=== PATIENT | male | born 1970 | race American Indian/Alaskan Native ===

== ENCOUNTER 2018-11-28 15:26 | Emergency (ER) | payer OTHER ==
--- NOTE | 2018-11-28 15:41 | Emergency Department Report ---
Blank Doc - Documentation Documentation: 48-year-old male that presents with left sided chest pain with radiation to left arm. Denies any SOB This initial assessment/diagnostic orders/clinical plan/treatment(s) is/are subject to change based on patient's health status, clinical progression and re- assessment by fellow clinical providers in the ED. Further treatment and workup at subsequent clinical providers discretion. Patient/guardians urged not to elope from the ED as their condition may be serious if not clinically assessed and managed. Initial orders include: 1- Patient sent to MAIN ED for further evaluation and treatment 2- labs 3- EKG 4- CXR
[2018-11-28 15:57] LABS: Basophils % (Auto) 0.6 % (0.0-1.8); Eosinophils # (Auto) 0.2 K/mm3 (0.0-0.4); Eosinophils % (Auto) 2.7 % (0.0-4.3); Hematocrit 39.5 % (35.5-45.6); Hemoglobin 12.6 gm/dl (11.8-15.2); Lymphocytes # (Auto) 1.8 K/mm3 (1.2-5.4); Lymphocytes % (Auto) 31.6 % (13.4-35.0); Mean Corpuscular HGB Conc 32 % (32-34); Mean Corpuscular Volume 83 fl (84-94); Monocytes # (Auto) 0.6 K/mm3 (0.0-0.8); Monocytes % (Auto) 10.5 % (0.0-7.3); Platelet Count 280 K/mm3 (140-440); Red Blood Count 4.74 M/mm3 (3.65-5.03); Red Cell Distribution Width 15.5 % (13.2-15.2)
[2018-11-28 16:06] LABS: INR 1.06 (0.87-1.13)
[2018-11-28 16:07] LABS: Partial Thromboplastin Time 29.9 Sec. (24.2-36.6)
--- NOTE | 2018-11-28 16:11 | XRay Report ---
CHEST 2 VIEWS INDICATION: Chest Pain. COMPARISON: None FINDINGS: Support devices: None. Heart: Within normal limits. Lungs/pleura: No acute air space or interstitial disease. No pneumothorax. Additional findings: None. IMPRESSION: No acute findings. Signer Name: Sammy Chan Jr, MD Signed: 11/28/2018 4:06 PM Workstation Name: [id number]
[2018-11-28 16:21] LABS: BUN/Creatinine Ratio 12; Blood Urea Nitrogen 13 mg/dL (9-20); Calcium 9.1 mg/dL (8.4-10.2); Hemolysis Index 16
[2018-11-28 19:01] VITALS: BP 147/84
--- NOTE | 2018-11-28 20:05 | Emergency Department Report ---
ED Chest Pain HPI - General Chief Complaint: Chest Pain Stated Complaint: CHEST PAIN/RT SIDE TINGLE Time Seen by Provider: 11/28/18 15:39 Source: patient Mode of arrival: Ambulatory Limitations: No Limitations - History of Present Illness Initial Comments: Mr. Romo is a pleasant healthy 48-year-old male with history of asthma who presents with chest pain in the morningsfor the past several days. He also said diffuse tingling in his body mostly in his hands. He attributes some of his symptoms to poor diet and long hours at work. Over the last several months he has been working double shifts in order to save up more money for pills. He is currently symptom-free. Symptoms are intermittent but worse in the morning. Symptoms are not associated with exertion. Last year he had cardiac stress tests which was normal according to his report. He is followed by Dr. Shelton of [facility]. MD Complaint: chest pain -: Gradual, week(s) (1) Onset: during rest Pain Location: substernal Severity: mild Severity scale (0 -10): 5 Quality: dull Consistency: now resolved Improves With: nothing Worsens With: nothing re: other (tingling in his hands) - Related Data Home Medications Medication Instructions Recorded Confirmed Last Taken Aspirin EC [Aspirin Enteric Coated 81 mg PO QDAY 07/25/15 07/25/15 2 Weeks Ago TAB] ~07/11/15 Ibuprofen [Motrin] 200 mg PO Q6H PRN 07/25/15 07/25/15 3 Weeks Ago ~07/04/15 Nitroglycerin [Nitrostat] 0.4 mg SL Q5M PRN 07/25/15 07/25/15 Unknown Valacyclovir HCl [valACYclovir] 1,000 mg PO PRN 07/25/15 07/25/15 2 Weeks Ago ~07/11/15 Allergies Allergy/AdvReac Type Severity Reaction Status Date / Time No Known Allergies Allergy Verified 07/25/15 07:04 Heart Score - HEART Score History: Slightly suspicious EKG: Normal Age: 45-65 Risk factors: 1-2 risk factors Troponin: < normal limit HEART Score: 2 ED Review of Systems ROS: Stated complaint: CHEST PAIN/RT SIDE TINGLE Other details as noted in HPI Comment: All other systems reviewed and negative Constitutional: denies: fever, malaise Cardiovascular: denies: chest pain Neurological: paresthesias ED Past Medical Hx - Past Medical History Previous Medical History?: No Hx Hypertension: No Hx Heart Attack/AMI: No Hx Diabetes: No Hx Renal Disease: No Hx Asthma: Yes Hx COPD: No - Surgical History Hx Coronary Stent: No Hx Pacemaker: No - Family History Family history: hypertension, vascular disease, other (mother has history of CVA) - Social History Smoking Status: Unknown if ever smoked Substance Use Type: None - Medications Home Medications: Home Medications Medication Instructions Recorded Confirmed Last Taken Type Aspirin EC [Aspirin Enteric Coated 81 mg PO QDAY 07/25/15 07/25/15 2 Weeks Ago History TAB] ~07/11/15 Ibuprofen [Motrin] 200 mg PO Q6H PRN 07/25/15 07/25/15 3 Weeks Ago History ~07/04/15 Nitroglycerin [Nitrostat] 0.4 mg SL Q5M PRN 07/25/15 07/25/15 Unknown History Valacyclovir HCl [valACYclovir] 1,000 mg PO PRN 07/25/15 07/25/15 2 Weeks Ago History ~07/11/15 ED Physical Exam - General Limitations: No Limitations General appearance: alert, in no apparent distress - Head Head exam: Present: atraumatic, normocephalic - Eye Eye exam: Present: normal appearance - ENT ENT exam: Present: mucous membranes moist - Neck Neck exam: Present: normal inspection, full ROM - Respiratory Respiratory exam: Present: normal lung sounds bilaterally. Absent: respiratory distress, wheezes, rales, rhonchi - Cardiovascular Cardiovascular Exam: Present: regular rate, normal rhythm, normal heart sounds. Absent: systolic murmur, diastolic murmur, rubs, gallop - GI/Abdominal GI/Abdominal exam: Present: soft, normal bowel sounds. Absent: distended, tenderness, guarding, rebound - Rectal Rectal exam: Present: deferred - Extremities Exam Extremities exam: Present: normal inspection - Back Exam Back exam: Present: normal inspection - Neurological Exam Neurological exam: Present: alert, oriented X3 - Psychiatric Psychiatric exam: Present: normal affect, normal mood - Skin Skin exam: Present: warm, dry, intact, normal color. Absent: rash ED Course Vital Signs 11/28/18 11/28/18 11/28/18 16:03 19:00 19:20 Temperature 98 F 97.7 F Pulse Rate 69 74 70 Respiratory 18 18 13 Rate Blood Pressure 141/90 Blood Pressure 147/84 147/84 [Left] O2 Sat by Pulse 98 100 95 Oximetry ED Medical Decision Making - Lab Data Result diagrams: 11/28/18 15:45 11/28/18 15:45 - EKG Data EKG shows normal: sinus rhythm, axis, intervals, QRS complexes, ST-T waves Rate: normal - EKG Data Interpretation: no acute changes, normal EKG, unchanged when compared t (unchanged from prior EKG obtained 06/03/2005, both EKGs are normal) - Radiology Data Radiology results: report reviewed Chest radiograph according to radiology impression no acute finding - Medical Decision Making Mr. Romo is a healthy gentleman who presents with atypical low risk chest pain. Heart score 2. Chest pain possibly due to stress reaction to work with long hours versus GERD. Pain is mostly in the morning at home. Paresthesias possibly due to cervical radiculopathy. Mr. Romo was given reassurance. I strongly encouraged follow-up with Dr. Shelton his primary care physician. Considering previous cardiac stress testing, I felt that he would benefit from his evaluation by general practitioner in lieu of [facility] bail[facility]. He understands the need to follow-up with his PCP Dr. Shelton this week. Critical care attestation.: If time is entered above; I have spent that time in minutes in the direct care of this critically ill patient, excluding procedure time. ED Disposition Clinical Impression: Chest pain, Paresthesias Disposition: DC-01 TO HOME OR SELFCARE Is pt being admited?: No Does the pt Need Aspirin: No Condition: Stable Instructions: Chest Pain (ED), Paresthesia (ED) Referrals: CRYSTAL SHELTON NP [Primary Care Provider] - [facility] Forms: Work/School Release Form(ED)
== END 2018-11-28 20:30 | disposition home or self-care (01) ==
LOC: ED 15:26
DX: R07.89 Other chest pain (principal); R20.2 Paresthesia of skin; J45.909 Unspecified asthma, uncomplicated; Z79.899 Other long term (current) drug therapy
CPT/HCPCS: 36415; 71046; 80048; 84484; 85025; 85610; 85730; 93005; 93010